=== PATIENT | female | born 1960 | race African-American/Black ===

== ENCOUNTER 2021-01-15 09:25 | Outpatient (CLI) | payer OTHER, SELFPAY | END 2021-01-15 23:59 | disposition home or self-care (01) | LOC: MLB 09:25 → EDSTATUS 01-23 12:30 | PROVIDERS: ATTEND Internal Medicine Gastroenterology | DX: Z01.812 Encounter for preprocedural laboratory examination (principal); Z20.822 Contact with and (suspected) exposure to COVID-19 | CPT/HCPCS: U0003 ==

== ENCOUNTER 2021-05-08 11:30 | Outpatient (CLI) | payer OTHER, SELFPAY | END 2021-05-08 23:59 | disposition home or self-care (01) | LOC: MLB 11:30 → EDSTATUS 06-06 13:00 | PROVIDERS: ATTEND Internal Medicine Gastroenterology | DX: Z01.812 Encounter for preprocedural laboratory examination (principal); Z12.11 Encounter for screening for malignant neoplasm of colon; Z20.822 Contact with and (suspected) exposure to COVID-19 | CPT/HCPCS: U0003 ==